=== PATIENT | female | born 1955 | race Caucasian/White ===

== ENCOUNTER 2021-04-22 14:55 | Outpatient (CLI) | payer MEDICARE, OTHER, SELFPAY ==
--- NOTE | ~2021-04-22 | MM_ITS ---
EXAMINATION: MM screening edin BI w edelmira HISTORY: Screening mammogram TECHNIQUE: Craniocaudal and mediolateral oblique 3-D tomosynthesis images were obtained and synthetic 2-D images were generated. CAD analysis was submitted and interpreted. COMPARISON: No prior mammogram is available for comparison at this institution. BREAST PARENCHYMAL COMPOSITION: The breasts are heterogeneously dense, which may obscure small masses . FINDINGS: There is no evidence of suspicious mass, calcification, or architectural distortion to sugg est malignancy in either breast. There has been no suspicious interval change. IMPRESSION: 1. No mammographic evidence of malignancy. 2. Recommend routine screening mammography in one year. BI-RADS Category 1: Negative Reviewed, dictated and finalized at location A.
== END 2021-04-22 14:56 | disposition home or self-care (01) ==
DX: Z12.31 Encounter for screening mammogram for malignant neoplasm of breast (principal)
CPT/HCPCS: 77063; 77067

== ENCOUNTER 2021-07-02 08:02 | Outpatient (CLI) | payer OTHER, MEDICARE, SELFPAY ==
--- NOTE | 2021-07-16 17:52 | WPDHOMESLEEP ---
Sleep Study - Home Unattended Date of Study: 07/02/21 <Jane Arreaga DO - Last Filed: 07/16/21 18:07> Ordering Provider: Harika Sanchez MD <Jane Arreaga DO - Last Filed: 07/16/21 18:07> Interpreting Provider: Jane Arreaga DO <Jane Arreaga DO - Last Filed: 07/16/21 18:07> Home Sleep Study Type: Watch PAT <Jane Arreaga DO - Last Filed: 07/16/21 18:07> Height: 1.6 m <Jane Arreaga DO - Last Filed: 07/16/21 18:07> Weight: 72.575 kg <Jane Arreaga DO - Last Filed: 07/16/21 18:07> Body Mass Index: 28.3 <Jane Arreaga DO - Last Filed: 07/16/21 18:07> Neck Circumference (inches): 12.5 <Jane Arreaga DO - Last Filed: 07/16/21 18:07> [place]: 9 <Jane Arreaga DO - Last Filed: 07/16/21 18:07> Reason for Sleep Study Multiple nighttime awakenings, choking, unrefreshing sleep <Jane Arreaga DO - Last Filed: 07/16/21 18:07> Sleep History The patient is a 65-year-old female with atrial fibrillation and osteopenia that had a home sleep test ordered by her small engine technician due to unrefreshing sleep and multiple nighttime awakenings. The patient rarely awakens from sleep short of breath. She denies awakening at night with heartburn, belching or cough. She frequently snores and is occasionally loud enough that others complain. She occasionally has trouble sleeping when she has a cold. She denies waking up gasping for air throughout the night. She denies having breathing problems at night observed by others. She denies sweating excessively at night. She occasionally notices heart palpitations or irregular heartbeats during the night. She occasionally falls asleep during the day but never while driving. She denies sleep paralysis, cataplexy and hypnagogic / hypnopompic hallucinations. She rarely has nightmares. She occasionally has thoughts racing through her mind. She denies feeling sad or depressed. She rarely feels anxious. She rarely notices parts of her body jerk. She rarely kicks during the night. She denies crawling and aching feelings in her legs but occasionally has leg pain during the night. She is unsure she grinds her teeth during sleep but never awakens with jaw pain in the morning. She denies being bothered by pain during the day and being awakened by pain during the night. She occasionally wakes up feeling stiff in the morning with sore and achy muscles. She goes to bed between midnight and 1:00 a.m. on both weekdays and weekends. She can fall asleep within a few minutes. She wakes up at least 5 times per night. When she awakens, she will change positions of fall back asleep. She awakens between 530 and 6:00 a.m. on weekdays and between 6 and 7:00 a.m. on the weekends. He typically gets between 5 and 6 hours of sleep per night. She does not stay in bed after awakening in the morning. She currently lives with her . She does not consume any caffeinated beverages within 2 hours of bedtime. She does not do physical exercise before bedtime. She will watch television before falling asleep. She will take naps occasionally during the afternoon or evening. She will consume coffee or chocolate occasionally. She will have 1 alcoholic beverage per day. She denies tobacco and recreational drug use. <Jane Arreaga DO - Last Filed: 07/16/21 18:07> [facility] Social History Social History: Social History Smoking status: Never smoker Alcohol intake: current Drinks per week: 5 Alcohol use details: WINE Substance use: never Substance use type: does not use Spiritual care concerns: No <Jane Arreaga DO - Last Filed: 07/16/21 18:07> Medications Home Medications: Home Medications Medication Instructions Recorded Confirmed Type Adult Probiotic 1 cap PO DAILY 07/14/21 07/14/21 History
[2021-07-16 18:05] VITALS: BMI 28.3
== END 2021-07-07 09:15 | disposition home or self-care (01) ==
LOC: ANHCSM 08:03
PROVIDERS: PCP Hospitalist; Visit Provider Internal Medicine Cardiovascular Disease
DX: G47.10 Hypersomnia, unspecified (principal); F51.8 Other sleep disorders not due to a substance or known physiological condition; I48.0 Paroxysmal atrial fibrillation; G47.9 Sleep disorder, unspecified; R06.83 Snoring
CPT/HCPCS: 95800

== ENCOUNTER 2021-07-24 01:26 | Day surgery (SDC) | payer MEDICARE, OTHER, SELFPAY ==
[2021-07-14 10:44] VITALS: BMI 28.0
[2021-07-24 11:53] VITALS: BP 155/82; PULSE 73; RESP 20; TEMP 36.4; O2SAT 99; BMI 28.4
[2021-07-24] MEDS: LACTATED RINGERS 1,000 ML 150 ML IV CONT (11:58)
--- NOTE | 2021-07-24 12:00 | P.PNAN_ITS ---
Anes - Initial Pre Proc Eval Procedure: Operation Date: 07/24/21 13:00 Proposed Procedures p Screening Colonoscopy - Jose Cisneros MD Date/Time: 07/24/21 12:00 Surgeon: Jose Cisneros MD Pre Op Diagnosis: neoplasm screening Patient Data Age: 65 Gender: F Height: 1.6 m Weight: 72.9 kg Last Vital Signs Temp 36.4 C 07/24/21 11:53 Pulse 73 07/24/21 11:53 Resp 20 07/24/21 11:53 BP 155/82 H 07/24/21 11:53 Pulse Ox 99 07/24/21 11:53 Allergies Allergy/AdvReac Type Severity Reaction Status Date / Time No Known Allergies Allergy Unknown Verified 07/24/21 11:51 Home Medications Medication Instructions Recorded Confirmed Type Adult Probiotic 1 cap PO DAILY 07/14/21 07/14/21 History Daily Fiber 1 cap PO DAILY 07/14/21 07/14/21 History Glucosamine 1 cap PO DAILY 07/14/21 07/14/21 History Vision Plus Lutein 1 cap PO DAILY 07/14/21 07/14/21 History alendronate 70 mg PO WEEKLY 07/14/21 07/14/21 History ascorbic acid (vitamin C) 500 mg PO DAILY 07/14/21 07/14/21 History calcium carbonate-vitamin D3 1 tablet PO DAILY 07/14/21 07/14/21 History [Calcium + D] cholecalciferol (vitamin D3) 125 mcg PO DAILY 07/14/21 07/14/21 History [Vitamin D3] metoprolol succinate 25 mg PO DAILY 07/14/21 07/14/21 History xiokshhrbemj-ftl-fkaw-FA-vit K 1 tablet PO DAILY 07/14/21 07/14/21 History [Adults Multivitamin] omega-3 fatty acids [[place] 3] 1 cap PO DAILY 07/14/21 07/14/21 History rivaroxaban [Xarelto] 20 mg PO DAILY 07/14/21 07/14/21 History vitamin B complex 1 cap PO DAILY 07/14/21 07/14/21 History vitamin E 180 mg PO DAILY 07/14/21 07/14/21 History Patient hx anesthesia problems: none Family hx anesthesia problems: none Results Review: All pre-operative results and documents have been reviewed as part of the pre-operative evaluation. PMFSH Past Medical History Medical History (Updated 07/24/21 @ 12:01 by Phillip Rivera MD) Paroxysmal A-fib Social History Social History Smoking status: Never smoker Alcohol intake: current Drinks per week: 5 Alcohol use details: WINE Substance use: never Substance use type: does not use Living arrangements: with family Spiritual care concerns: No Anes - Eval Final PreProcedure Day of Procedure 07/24/21 12:00 Patient weight: overweight Heart: regular rate and rhythm Lungs: clear to auscultation Airway: Mallampati scale class II Neurological: alert and oriented Last oral intake: >/= 8 hours ASA classification: II Emergent: no Anesthetic plan: proceed Anesthesia type and monitoring: general GIVS and standard monitoring Results Review: All pre-operative results and documents have been reviewed as part of the pre-operative evaluation. Informed Consent: The patient's anesthetic plan and its attendant risks and benefits were discussed with the patient/family/POA. Questions were solicited and answers provided to the satisfaction of the patient/family/POA.
--- NOTE | 2021-07-24 12:03 | WPDGICN ---
Assessment and Plan Assessment and plan (1) Encounter for screening colonoscopy: Code(s): Z12.11 - Encounter for screening for malignant neoplasm of colon Status: Acute Assessment and Plan: Patient presents for screening colonoscopy. Further recommendations will be given after endoscopy. (2) Paroxysmal A-fib: Code(s): I48.0 - Paroxysmal atrial fibrillation Status: Inactive Assessment and Plan: Patient has paroxysmal atrial fibrillation. Anticoagulation was relative will be held briefly for endoscopy. Likely anticoagulation contributes to the occasional bright red blood per rectum she notices. High-fiber diet may be beneficial further recommendations will be given after endoscopy GI Consult Note Consult date/time: 07/24/21 12:03 HPI: Oanh Koch is a 65 year old female Presents for screening colonoscopy. Patient states that her weight appetite bowel movements are normal. Her last exam was more than 10 years ago. Patient does have a history of atrial fibrillation for which she is on Xarelto anticoagulation. She occasionally will notice bright red blood per rectum with wiping and also with preparation for her screening colonoscopy today. Patient denies any abdominal or rectal pain. Her family history is noncontributory. Review of Systems Review of Systems: All systems reviewed & are unremarkable except as noted in HPI and below PMFSH Past Medical History Medical History (Updated 07/24/21 @ 12:04 by Jose Cisneros MD) Paroxysmal A-fib Social History Social History Smoking status: Never smoker Alcohol intake: current Drinks per week: 5 Alcohol use details: WINE Substance use: never Substance use type: does not use Living arrangements: with family Spiritual care concerns: No Meds Home Medications and Allergies Home Medications Medication Instructions Recorded Confirmed Type Adult Probiotic 1 cap PO DAILY 07/14/21 07/14/21 History Daily Fiber 1 cap PO DAILY 07/14/21 07/14/21 History Glucosamine 1 cap PO DAILY 07/14/21 07/14/21 History Vision Plus Lutein 1 cap PO DAILY 07/14/21 07/14/21 History alendronate 70 mg PO WEEKLY 07/14/21 07/14/21 History ascorbic acid (vitamin C) 500 mg PO DAILY 07/14/21 07/14/21 History calcium carbonate-vitamin D3 1 tablet PO DAILY 07/14/21 07/14/21 History [Calcium + D] cholecalciferol (vitamin D3) 125 mcg PO DAILY 07/14/21 07/14/21 History [Vitamin D3] metoprolol succinate 25 mg PO DAILY 07/14/21 07/14/21 History hjyyxxwpntft-vue-weuh-FA-vit K 1 tablet PO DAILY 07/14/21 07/14/21 History [Adults Multivitamin] omega-3 fatty acids [[place] 3] 1 cap PO DAILY 07/14/21 07/14/21 History rivaroxaban [Xarelto] 20 mg PO DAILY 07/14/21 07/14/21 History vitamin B complex 1 cap PO DAILY 07/14/21 07/14/21 History vitamin E 180 mg PO DAILY 07/14/21 07/14/21 History Allergies Allergy/AdvReac Type Severity Reaction Status Date / Time No Known Allergies Allergy Unknown Verified 07/24/21 11:51 Vital Signs Vital Signs - 24 hr 07/24/21 11:53 Temperature 97.6 F Pulse Rate 73 Respiratory Rate 20 Blood Pressure 155/82 H Pulse Oximetry 99 Exam Narrative: Physical exam reveals patient be alert. Vital signs stable. HEENT exam is unremarkable. Patient is anicteric. Lungs are clear to auscultation and percussion. Heart is without murmur or extra sounds. Abdominal exam bowel sounds are present soft nontender with no organomegaly. Digital external rectal exam is normal.
[2021-07-24 12:20] VITALS: BP 105/64; PULSE 70; RESP 18; O2SAT 98
[2021-07-24 12:30] VITALS: BP 126/80; PULSE 67; RESP 26; O2SAT 100
[2021-07-24 12:40] VITALS: BP 142/81; PULSE 66; RESP 20; O2SAT 100
== END 2021-07-24 12:53 | disposition home or self-care (01) ==
PROVIDERS: PCP Hospitalist; Visit Provider Internal Medicine Gastroenterology
PROC: 0DJD8ZZ Inspection of Lower Intestinal Tract, Via Natural or Artificial Opening Endoscopic (ICD-10-PCS; CPT 45378; principal; 2021-07-24 13:00)
DX: Z12.11 Encounter for screening for malignant neoplasm of colon (principal); K64.8 Other hemorrhoids; K57.30 Diverticulosis of large intestine without perforation or abscess without bleeding; I48.0 Paroxysmal atrial fibrillation; Z79.01 Long term (current) use of anticoagulants
CPT/HCPCS: 45378; J2704; J7120

== ENCOUNTER 2021-07-29 14:00 | Outpatient (CLI) | payer MEDICARE, OTHER, SELFPAY ==
--- NOTE | ~2021-07-29 | DEXA_ITS ---
Bone Density Report Name: JACINTO BRISCOE Age: 65 Sex: Female Ethnicity: White Date of : 1955 Indication: osteopenia; monitoring treatment; postmenopausal Referring Provider: UNKNOWN, UNKNOWN Study: Bone densitometry was performed. Exam Date: July 29, 2021 Accession number: [id number] Bone Density: Region BMD T-score Z-score Classification AP Spine (L1, L2) 0.812 -1.5 0.2 Osteopenia Femoral Neck (Left) 0.584 -2.4 -0.8 Osteopenia Total Hip (Left) 0.756 -1.5 -0.3 Osteopenia Total Hip Bilateral Avg 0.775 -1.4 -0.2 Osteopenia Femoral Neck (Right) 0.739 -1.0 0.5 Normal Total Hip (Right) 0.793 -1.2 0.0 Osteopenia World Health Organization criteria for BMD impression classify patients as: Normal (T-score at or above -1.0), Osteopenia (T-score between -1.0 and -2.5), or Osteoporosis (T-score at or below -2.5). 10-year Fracture Risk: FRAX not reported because: Treated for osteoporosis Previous Exams: Region Exam Age BMD T-score BMD Change BMD Change Date g/cm2 vs Baseline vs Previous AP Spine(L1, L2) 07/29/2021 65 0.812 -1.5 -0.054(-6.2%)# 0.020(2.6%) 02/08/2018 62 0.792 -1.7 -0.074(-8.5%)# 0.014(1.8%)# 11/13/2015 59 0.778 -1.8 -0.088(-10.1%) -0.088(-10.1%) 06/22/2012 56 0.866 -1.0 Total Hip(Left) 07/29/2021 65 0.756 -1.5 0.004(0.5%)# 0.013(1.8%) 02/08/2018 62 0.743 -1.6 -0.010(-1.3%)# 0.015(2.0%)# 11/13/2015 59 0.728 -1.8 -0.024(-3.2%) -0.024(-3.2%) 06/22/2012 56 0.753 -1.6 Total Hip(Right) 07/29/2021 65 0.793 -1.2 -0.029(-3.5%)# -0.026(-3.2%) 02/08/2018 62 0.819 -1.0 -0.003(-0.4%)# -0.014(-1.6%)# 11/13/2015 59 0.833 -0.9 0.011(1.3%) 0.011(1.3%) 06/22/2012 56 0.822 -1.0 *Denotes significance at 95% confidence level, LSC for AP Spine = 0.022 g/cm2, LSC for Total Hip = 0.027 g/cm2 Clinical Information Provided by Patient: Is being treated for osteoporosis Has used the following medications: Fosamax (i.e. alendronate), Vitamin D, Calcium Patient maximum height was 63.5 Menopause Age: 52 Onset of menses at age 13 Number of children 3 Impression: The patient has low bone mass, based on the Left Femoral Neck T-score. No significant bone loss was observed. Discussion: PATIENT UNDER TREATMENT WITH NO SIGNIFICANT BMD LOSS SINCE LAST EXAM. In an untreated patient, BMD typically declines with age. A lack of decline or gain is usually a sign that treatment is e
== END 2021-07-29 14:01 | disposition home or self-care (01) ==
PROVIDERS: PCP Hospitalist
DX: M81.0 Age-related osteoporosis without current pathological fracture (principal); M85.88 Other specified disorders of bone density and structure, other site; M85.852 Other specified disorders of bone density and structure, left thigh; M85.851 Other specified disorders of bone density and structure, right thigh
CPT/HCPCS: 77080

== ENCOUNTER → 2021-10-14 20:00 | Outpatient (CLI) | payer MEDICARE, OTHER, SELFPAY ==
--- NOTE | 2021-10-21 13:07 | WPDSLEEPSTUD ---
Sleep Study Date of Study: 10/08/21 Ordering Provider: Harika Sanchez MD Interpreting Physician: Jane Arreaga DO Sleep Study Type: Polysomnogram Height: 1.6 m Weight: 73.482 kg Body Mass Index: 28.7 Neck Circumference (inches): 13 [place]: 10 Reason for Sleep Study Multiple nighttime awakenings, unrefreshing sleep Sleep History The patient is a 65-year-old female with atrial fibrillation and osteopenia that had a home sleep test ordered by her direct support specialist due to unrefreshing sleep and multiple nighttime awakenings. The patient rarely awakens from sleep short of breath. She denies awakening at night with heartburn, belching or cough. She frequently snores and is occasionally loud enough that others complain. She occasionally has trouble sleeping when she has a cold. She denies waking up gasping for air throughout the night. She denies having breathing problems at night observed by others. She denies sweating excessively at night. She occasionally notices heart palpitations or irregular heartbeats during the night. She occasionally falls asleep during the day but never while driving. She denies sleep paralysis, cataplexy and hypnagogic / hypnopompic hallucinations. She rarely has nightmares. She occasionally has thoughts racing through her mind. She denies feeling sad or depressed. She rarely feels anxious. She rarely notices parts of her body jerk. She rarely kicks during the night. She denies crawling and aching feelings in her legs but occasionally has leg pain during the night. She is unsure she grinds her teeth during sleep but never awakens with jaw pain in the morning. She denies being bothered by pain during the day and being awakened by pain during the night. She occasionally wakes up feeling stiff in the morning with sore and achy muscles. She goes to bed between midnight and 1:00 a.m. on both weekdays and weekends. She can fall asleep within a few minutes. She wakes up at least 5 times per night. When she awakens, she will change positions of fall back asleep. She awakens between 530 and 6:00 a.m. on weekdays and between 6 and 7:00 a.m. on the weekends. He typically gets between 5 and 6 hours of sleep per night. She does not stay in bed after awakening in the morning. She currently lives with her . She does not consume any caffeinated beverages within 2 hours of bedtime. She does not do physical exercise before bedtime. She will watch television before falling asleep. She will take naps occasionally during the afternoon or evening. She will consume coffee or chocolate occasionally. She will have 1 alcoholic beverage per day. She denies tobacco and recreational drug use. PMFSH Past Medical History Medical History Paroxysmal A-fib Social History Social History Smoking status: Never smoker Alcohol intake: current Drinks per week: 5 Alcohol use details: WINE Substance use: never Substance use type: does not use Spiritual care concerns: No Medications Home Medications Medication Instructions Recorded Confirmed Type Adult Probiotic 1 cap PO DAILY 07/14/21 07/14/21 History Daily Fiber 1 cap PO DAILY 07/14/21 07/14/21 History Glucosamine 1 cap PO DAILY 07/14/21 07/14/21 History Vision Plus Lutein 1 cap PO DAILY 07/14/21 07/14/21 History alendronate 70 mg PO WEEKLY 07/14/21 07/14/21 History ascorbic acid (vitamin C) 500 mg PO DAILY 07/14/21 07/14/21 History calcium carbonate-vitamin D3 1 tablet PO DAILY 07/14/21 07/14/21 History [Calcium + D] cholecalciferol (vitamin D3) 125 mcg PO DAILY 07/14/21 07/14/21 History [Vitamin D3] metoprolol succinate 25 mg PO DAILY 07/14/21 07/14/21 History cipqhvcipgsy-xpi-vtfm-FA-vit K 1 tablet PO DAILY 07/14/21 07/14/21 History [Adults Multivitamin] omega-3 fatty acids [[place] 3] 1 cap PO DAILY 07/14/21 07/14/21 H
[2021-10-21 18:05] VITALS: BMI 28.7
== END ==
PROVIDERS: PCP Hospitalist; Visit Provider Internal Medicine Cardiovascular Disease
DX: G47.10 Hypersomnia, unspecified (principal); G47.9 Sleep disorder, unspecified
CPT/HCPCS: 95810

== ENCOUNTER 2022-07-07 15:27 | Outpatient (CLI) | payer MEDICARE, SELFPAY ==
--- NOTE | ~2022-07-07 | MM_ITS ---
EXAMINATION: MM screening edin BI w edelmira HISTORY: Screening mammogram TECHNIQUE: Craniocaudal and mediolateral oblique 3-D tomosynthesis images were obtained and synthetic 2-D images were generated. CAD analysis was submitted and interpreted. COMPARISON: 04/22/2021, 07/13/2019, 02/08/2018 bilateral screening mammogram examinations BREAST PARENCHYMAL COMPOSITION: The breasts are heterogeneously dense, which may obscure small masses . FINDINGS: There is no evidence of suspicious mass, calcification, or architectural distortion to sugg est malignancy in either breast. There has been no suspicious interval change. IMPRESSION: 1. No mammographic evidence of malignancy. 2. Recommend routine screening mammography in one year. BI-RADS Category 1: Negative Reviewed, dictated and finalized at location A. AL LAB TECHNICIAN
== END 2022-07-07 15:28 | disposition home or self-care (01) ==
PROVIDERS: PCP Internal Medicine; Visit Provider Hospitalist
DX: Z12.31 Encounter for screening mammogram for malignant neoplasm of breast (principal)
CPT/HCPCS: 77063; 77067